=== PATIENT | female | born 1940 | race African-American/Black ===

== ENCOUNTER 2024-10-09 05:24 | Inpatient (IN) | payer MEDICARE, BC ==
[~2024-10-09] VITALS: Ht 30.5 cm; Wt 61.9 kg
[2024-10-09] VITALS (56 sets, daily range): BP systolic 111–149; BP diastolic 51–88; PULSE 74–109; RESP 14–37; TEMP 34.4472–36.78072; O2SAT 90–99
[~2024-10-09 05:24] MED LIST: ATOR10TA69 PO; ESCI10TA PO; LISI10TA26 PO; LYR25 PO; MECL-299 PO; MIRT-90 PO; TRAM50TA3 PO
[2024-10-09] MEDS: SODIUM CHLORIDE 0.9% 1,000 ML IV SCH (06:24)
[2024-10-09] MEDS ORDERED: GENTAMICIN SULF 40MG/ML 2ML VIAL ONE (06:41)
[2024-10-09] MEDS ORDERED: THROMBIN (BOVINE) 5000 UNITS/VIAL TOP ONE (06:41)
[2024-10-09] MEDS ORDERED: LIDOCAINE HCL/EPINEPHRINE 1%-EPI 1:100,000 20ML VIAL ONE (06:41)
[2024-10-09] MEDS ORDERED: SUCCINYLCHOLINE CHLORIDE 200MG/10ML IV ONE (07:05)
[2024-10-09] MEDS ORDERED: PROPOFOL 200MG/20ML VIAL IV ONE (07:05)
[2024-10-09] MEDS ORDERED: ROCURONIUM BROMIDE 10MG/ML VIAL 5ML IV ONE (07:05)
[2024-10-09] MEDS ORDERED: ONDANSETRON HCL 4MG/2ML INJ ONE (07:05)
[2024-10-09] MEDS ORDERED: ETOMIDATE 2MG/ML 10ML VIAL IV ONE (07:05)
[2024-10-09] MEDS ORDERED: DEXAMETHASONE 4MG/ML 1ML VIAL ONE (07:05)
[2024-10-09] MEDS ORDERED: CLINDAMYCIN 900MG PREMIX 50 ML IV ONE (07:06)
[2024-10-09] MEDS ORDERED: MIDAZOLAM HCL 2 MG/2 ML VIAL ONE (07:06)
[2024-10-09] MEDS ORDERED: FENTANYL CITRATE/PF 50MCG/ML 2ML VIAL ONE (07:06)
[2024-10-09] MEDS ORDERED: GLYCOPYRROLATE 0.2 MG/ML 2ML VIAL ONE ×2 (08:16)
[2024-10-09] MEDS ORDERED: FENTANYL CITRATE/PF 50MCG/ML 5ML VIAL ONE (08:16)
[2024-10-09] MEDS ORDERED: HYDRALAZINE 20MG/ML VIAL ONE (09:31)
[2024-10-09] MEDS ORDERED: LABETALOL 5MG/ML 20ML VIAL IV ONE (09:31)
[2024-10-09] MEDS ORDERED: SUGAMMADEX SODIUM 200MG/2ML VIAL IV ONE (09:41)
[2024-10-09] MEDS: MORPHINE SULFATE 4 MG/ML INJ (FOR IV/IM USE) IV PRN (11:00)
[2024-10-09] MEDS: NICARDIPINE 100 MG in SODIUM CHLORIDE 0.9% 60 ML IV PRN (11:50)
[2024-10-09] MEDS: DEXT 5%/LACTATED RINGERS 1,000 ML IV SCH (11:50)
[2024-10-09] MEDS: CLINDAMYCIN 600MG PREMIX 50 ML IV SCH (13:44)
[2024-10-09] MEDS: DEXAMETHASONE 4MG/ML 1ML VIAL IV SCH (13:44)
[2024-10-09] MEDS ORDERED: DONE-51 MT (14:04)
[2024-10-09] MEDS ORDERED: COLC0.6C3 MT (14:04)
[2024-10-09] MEDS: INFLUENZA VACCINE 05/PF 0.5 ML SYRINGE IM ONE (15:15)
[2024-10-09] MEDS: CITALOPRAM HYDROBROMIDE 10MG TABLET PO SCH (15:28)
[2024-10-09] MEDS: THROAT LOZENGES-BENZOCAINE/MENTH/CETYLPYRD CL LOZENGES MM PRN (15:28)
[2024-10-09] MEDS: ATORVASTATIN CALCIUM 10MG TABLET PO SCH (20:56)
[2024-10-09] MEDS: PREGABALIN 25MG CAPSULE PO SCH (20:57)
[2024-10-09] MEDS: MELATONIN 3MG TABLET PO SCH (20:57)
[2024-10-09] MEDS: MIRTAZAPINE 15MG TABLET PO SCH (20:57)
[2024-10-10] VITALS (69 sets, daily range): BP systolic 104–160; BP diastolic 50–102; PULSE 79–128; RESP 12–29; TEMP 36.55848–36.78072; O2SAT 90–100
[2024-10-10 05:11] LABS: HEMATOCRIT. 34.3 % (36.0-48.0); HEMOGLOBIN. 11.3 g/dL (12.0-16.0); MEAN CORPUSCULAR HEMOGLOBIN 29.2 pg (28.0-32.0); MEAN CORPUSCULAR HGB CONC 32.9 g/dL (31.0-37.0); MEAN CORPUSCULAR VOLUME 88.8 fL (81.0-99.0); RED BLOOD CELL COUNT 3.86 mill/uL (4.2-5.4); RED CELL DISTRIBUTION WIDTH 13.4 % (11.6-14.6); WHITE BLOOD COUNT 10.5 x1000/uL (4.5-11.0)
[2024-10-10 05:27] LABS: CALCIUM 9.8 mg/dL (8.7-10.4); CARBON DIOXIDE 25 mEq/L (21-32); CHLORIDE 111 mEq/L (98-107); POTASSIUM 4.5 mEq/L (3.5-5.1); SODIUM 141 mEq/L (136-145)
[2024-10-10 05:32] LABS: CREATININE 0.6 mg/dL (0.6-1.0)
[2024-10-10 05:33] LABS: GLUCOSE 203 mg/dL (70-105); LDL CHOLESTEROL 63 mg/dL (5-100); TRIGLYCERIDE 52 mg/dL (0-150); UREA NITROGEN BLOOD 11 mg/dL (9-23)
[2024-10-10 05:35] LABS: CHOLESTEROL 131 mg/dL (<200); HDL CHOLESTEROL 52 mg/dL (>65)
[2024-10-10 05:39] LABS: THYROID STIMULATING HORMONE 0.39 uIU/mL (0.55-4.78)
[2024-10-10 06:48] LABS: HEPATITIS B SURFACE ANTIGEN NEGATIVE (Negative)
[2024-10-10 07:10] LABS: HEPATITIS C AB NON REACTIVE (Neg) (Negative)
[2024-10-10 07:11] LABS: DIFFERENTIAL COMMENT 1
[2024-10-10] MEDS: LISINOPRIL 20MG TABLET PO SCH (08:33)
[2024-10-10] MEDS ORDERED: LISINOPRIL 10MG TABLET PO SCH (09:00)
[2024-10-10] MEDS ORDERED: PATIENT'S OWN MEDICATION PO SCH (09:00)
[2024-10-10] MEDS: HYDROCODONE/ACETAMINOPHEN 5/325MG TABLET PO PRN (11:01)
[2024-10-10] MEDS: HYDRALAZINE 20MG/ML VIAL IV PRN (11:02)
[2024-10-10 16:16] LABS: MEAN PLATELET VOLUME 9.1 fl (7.4-10.4); PLATELET 140 x1000/uL (130-400)
[2024-10-10 16:17] LABS: PLATELET ESTIMATE NORMAL
[2024-10-11] VITALS (25 sets, daily range): BP systolic 106–177; BP diastolic 47–138; PULSE 80–115; RESP 13–28; TEMP 36.44736–36.9474; O2SAT 93–96
[2024-10-11 06:15] LABS: HEMATOCRIT. 34.7 % (36.0-48.0); HEMOGLOBIN. 11.7 g/dL (12.0-16.0); MEAN CORPUSCULAR HEMOGLOBIN 29.9 pg (28.0-32.0); MEAN CORPUSCULAR HGB CONC 33.8 g/dL (31.0-37.0); MEAN CORPUSCULAR VOLUME 88.4 fL (81.0-99.0); MEAN PLATELET VOLUME 9.3 fl (7.4-10.4); PLATELET 161 x1000/uL (130-400); RED BLOOD CELL COUNT 3.92 mill/uL (4.2-5.4); RED CELL DISTRIBUTION WIDTH 13.2 % (11.6-14.6); WHITE BLOOD COUNT 10.6 x1000/uL (4.5-11.0)
[2024-10-11 06:34] LABS: CHLORIDE 110 mEq/L (98-107); POTASSIUM 4.5 mEq/L (3.5-5.1); SODIUM 144 mEq/L (136-145)
[2024-10-11 06:35] LABS: CARBON DIOXIDE 29 mEq/L (21-32)
[2024-10-11 06:40] LABS: CREATININE 0.5 mg/dL (0.6-1.0); GLUCOSE 123 mg/dL (70-105); UREA NITROGEN BLOOD 13 mg/dL (9-23)
[2024-10-11 08:13] LABS: DIFFERENTIAL COMMENT 1
[2024-10-11] MEDS: POLYETHYLENE GLYCOL 3350 (17GM) 1 DOSE PACK PO PRN (10:36)
[2024-10-11 14:23] LABS: PLATELET ESTIMATE NORMAL
[2024-10-11] MEDS: POLYETHYLENE GLYCOL 3350 (17GM) 1 DOSE PACK PO SCH (16:10)
[2024-10-11 17:52] LABS: CARBON DIOXIDE 28 mEq/L (21-32); CHLORIDE 109 mEq/L (98-107); POTASSIUM 4.3 mEq/L (3.5-5.1); SODIUM 142 mEq/L (136-145)
[2024-10-11 17:53] LABS: CALCIUM 9.8 mg/dL (8.7-10.4)
[2024-10-11 17:58] LABS: CREATININE 0.6 mg/dL (0.6-1.0); GLUCOSE 121 mg/dL (70-105); UREA NITROGEN BLOOD 20 mg/dL (9-23)
[2024-10-12] VITALS (32 sets, daily range): BP systolic 108–152; BP diastolic 62–82; PULSE 72–124; RESP 0–29; TEMP 36.72516–36.89184; O2SAT 94–96
[2024-10-12 06:08] LABS: HEMATOCRIT. 36.7 % (36.0-48.0); HEMOGLOBIN. 12.1 g/dL (12.0-16.0); MEAN CORPUSCULAR HEMOGLOBIN 29.5 pg (28.0-32.0); MEAN CORPUSCULAR VOLUME 89.5 fL (81.0-99.0); MEAN PLATELET VOLUME 9.6 fl (7.4-10.4); MONOCYTES % 8.9 % (2.0-8.0); NEUTROPHILS % 79.1 % (40.0-76.0); PLATELET 148 x1000/uL (130-400); RED CELL DISTRIBUTION WIDTH 13.4 % (11.6-14.6); WHITE BLOOD COUNT 10.6 x1000/uL (4.5-11.0)
[2024-10-12 11:52] LABS: CHLORIDE 109 mEq/L (98-107); POTASSIUM 4.6 mEq/L (3.5-5.1); SODIUM 143 mEq/L (136-145)
[2024-10-12 11:53] LABS: CALCIUM 9.8 mg/dL (8.7-10.4); CARBON DIOXIDE 26 mEq/L (21-32)
[2024-10-12 11:58] LABS: CREATININE 0.6 mg/dL (0.6-1.0); GLUCOSE 90 mg/dL (70-105); UREA NITROGEN BLOOD 22 mg/dL (9-23)
[2024-10-12 12:00] LABS: PHOSPHORUS 2.9 mg/dL (2.5-4.9)
[2024-10-13] VITALS: BP 128/69; PULSE 104; RESP 17; TEMP 36.61404; O2SAT 95
[2024-10-13 04:00] VITALS: BP 128/82; PULSE 92; RESP 15; TEMP 36.72516; O2SAT 96
[2024-10-13 07:33] LABS: CALCIUM 9.6 mg/dL (8.7-10.4); CARBON DIOXIDE 27 mEq/L (21-32); CHLORIDE 106 mEq/L (98-107); POTASSIUM 4.4 mEq/L (3.5-5.1); SODIUM 139 mEq/L (136-145)
[2024-10-13 07:38] LABS: CREATININE 0.5 mg/dL (0.6-1.0); GLUCOSE 91 mg/dL (70-105)
[2024-10-13 07:39] LABS: UREA NITROGEN BLOOD 18 mg/dL (9-23)
[2024-10-13 07:41] LABS: PHOSPHORUS 3.8 mg/dL (2.5-4.9)
[2024-10-13 08:00] VITALS: BP 129/74; PULSE 98; RESP 21; TEMP 37.16964; O2SAT 97
[2024-10-13] MEDS ORDERED: IPRATROPIUM/ALBUTEROL 0.5-3(2.5)MG/3ML NEB HHN PRN (08:00)
[2024-10-13 08:24] LABS: EOSINOPHILS % 0.4 % (0.0-5.0); HEMATOCRIT. 37.3 % (36.0-48.0); LYMPHOCYTES % 18.4 % (20.0-50.0); MEAN CORPUSCULAR HEMOGLOBIN 28.7 pg (28.0-32.0); MEAN CORPUSCULAR HGB CONC 32.3 g/dL (31.0-37.0); MONOCYTES % 10.2 % (2.0-8.0); PLATELET 165 x1000/uL (130-400); RED BLOOD CELL COUNT 4.19 mill/uL (4.2-5.4); RED CELL DISTRIBUTION WIDTH 13.4 % (11.6-14.6); WHITE BLOOD COUNT 8.2 x1000/uL (4.5-11.0)
[2024-10-13 12:00] VITALS: BP 119/76; PULSE 115; RESP 25; TEMP 36.9474; O2SAT 98
[2024-10-13] MEDS ORDERED: NALOXONE HCL 0.4MG/ML VIAL IV PRN (12:30)
[2024-10-13] MEDS: LACTULOSE 20G/30ML UDC PO NR ×2 (12:33→15:30)
[2024-10-13] MEDS: BISACODYL 10MG SUPP PR NR (15:00)
[2024-10-13] MEDS: MORPHINE SULFATE 2 MG/ML INJ (NOT FOR IM USE) IV PRN (15:08)
[2024-10-13 16:00] VITALS: BP 152/88; PULSE 119; RESP 25; TEMP 37.05852; O2SAT 95
[2024-10-13 20:00] VITALS: BP 125/68; PULSE 123; RESP 30; TEMP 38.16972; O2SAT 95
[2024-10-14] VITALS: BP 128/51; PULSE 110; RESP 19; TEMP 36.78072; O2SAT 97
[2024-10-14 04:00] VITALS: BP 131/56; PULSE 113; RESP 21; TEMP 36.61404; O2SAT 96
[2024-10-14 08:00] VITALS: BP 134/72; PULSE 110; RESP 29; TEMP 36.89184; O2SAT 96
[2024-10-14] MEDS: POLYETHYLENE GLYCOL 3350 (17GM) 1 DOSE PACK PO SCH (08:41)
[2024-10-14 09:37] LABS: CHLORIDE 108 mEq/L (98-107); POTASSIUM 4.3 mEq/L (3.5-5.1); SODIUM 139 mEq/L (136-145)
[2024-10-14 09:38] LABS: CALCIUM 9.3 mg/dL (8.7-10.4); CARBON DIOXIDE 27 mEq/L (21-32)
[2024-10-14 09:43] LABS: CREATININE 0.6 mg/dL (0.6-1.0); GLUCOSE 92 mg/dL (70-105)
[2024-10-14 09:44] LABS: UREA NITROGEN BLOOD 13 mg/dL (9-23)
[2024-10-14 09:46] LABS: PHOSPHORUS 2.9 mg/dL (2.5-4.9)
[2024-10-14 10:25] LABS: BASOPHILS % 0.2 % (0.0-2.0); EOSINOPHILS % 0.8 % (0.0-5.0); HEMATOCRIT. 37.9 % (36.0-48.0); HEMOGLOBIN. 12.4 g/dL (12.0-16.0); LYMPHOCYTES % 18.8 % (20.0-50.0); MEAN CORPUSCULAR HEMOGLOBIN 28.9 pg (28.0-32.0); MEAN CORPUSCULAR HGB CONC 32.6 g/dL (31.0-37.0); MEAN CORPUSCULAR VOLUME 88.7 fL (81.0-99.0); MEAN PLATELET VOLUME 8.6 fl (7.4-10.4); MONOCYTES % 9.8 % (2.0-8.0); NEUTROPHILS % 70.4 % (40.0-76.0); PLATELET 178 x1000/uL (130-400); RED BLOOD CELL COUNT 4.27 mill/uL (4.2-5.4); RED CELL DISTRIBUTION WIDTH 13.2 % (11.6-14.6); WHITE BLOOD COUNT 8.1 x1000/uL (4.5-11.0)
[2024-10-14] MEDS: SODIUM CHLORIDE 0.9% 500 ML IV ONE (10:30)
[2024-10-14 12:00] VITALS: BP 128/66; PULSE 108; RESP 32; TEMP 36.9474; O2SAT 97
[2024-10-14 16:00] VITALS: BP 128/70; PULSE 119; RESP 24; TEMP 37.16964; O2SAT 95
[2024-10-14 16:21] LABS: TROPONIN I HIGH SENSITIVITY 95 ng/L (3.0-34)
[2024-10-14 20:00] VITALS: BP 120/64; PULSE 118; RESP 20; TEMP 37.28076; O2SAT 96
[2024-10-15] VITALS: BP 129/68; PULSE 109; RESP 18; TEMP 37.39188; O2SAT 95
[2024-10-15] MEDS: HYDROCODONE/ACETAMINOPHEN 5/325MG TABLET PO PRN (01:13)
[2024-10-15 04:00] VITALS: BP 134/75; PULSE 101; RESP 26; TEMP 37.11408; O2SAT 96
[2024-10-15 08:00] VITALS: BP 124/63; PULSE 111; RESP 12; TEMP 36.89184; O2SAT 97
[2024-10-15 08:25] LABS: BASOPHILS % 0.2 % (0.0-2.0); EOSINOPHILS % 1.1 % (0.0-5.0); HEMATOCRIT. 34.1 % (36.0-48.0); HEMOGLOBIN. 11.2 g/dL (12.0-16.0); LYMPHOCYTES % 17.7 % (20.0-50.0); MEAN CORPUSCULAR HEMOGLOBIN 29.1 pg (28.0-32.0); MEAN CORPUSCULAR HGB CONC 32.9 g/dL (31.0-37.0); MEAN CORPUSCULAR VOLUME 88.5 fL (81.0-99.0); MEAN PLATELET VOLUME 8.4 fl (7.4-10.4); MONOCYTES % 13.1 % (2.0-8.0); NEUTROPHILS % 67.9 % (40.0-76.0); PLATELET 173 x1000/uL (130-400); RED BLOOD CELL COUNT 3.85 mill/uL (4.2-5.4); RED CELL DISTRIBUTION WIDTH 13.2 % (11.6-14.6); WHITE BLOOD COUNT 8.4 x1000/uL (4.5-11.0)
[2024-10-15 12:00] VITALS: BP 126/76; PULSE 89; RESP 19; TEMP 37.16964; O2SAT 95
[2024-10-15 16:00] VITALS: BP 117/71; PULSE 110; RESP 15; TEMP 37.2252; O2SAT 99
[2024-10-15 20:00] VITALS: BP 122/58; PULSE 99; RESP 20; TEMP 36.9474; O2SAT 94
[2024-10-16] VITALS (7 sets, daily range): BP systolic 101–145; BP diastolic 64–98; PULSE 88–107; RESP 19–29; TEMP 36.22512–37.05852; O2SAT 95–96
[2024-10-16] MEDS: PHENOL/SODIUM PHENOLATE 1.4% SRPAY 177ML MM PRN (16:35)
== END 2024-10-16 22:32 | DRG 471 ==
LOC: OR 05:24 → EDSTATUS 07:00 → EDUNIT# 07:00 → MICUSO 10:46 → 3WST 10-12 18:59
PROVIDERS: ADMIT Internal Medicine; ATTEND Internal Medicine
PROC: 0RG2071 Fusion of 2 or more Cervical Vertebral Joints with Autologous Tissue Substitute, Posterior Approach, Posterior Column, Open Approach (ICD-10-PCS; principal; 2024-10-09)
PROC: 00NW0ZZ Release Cervical Spinal Cord, Open Approach (ICD-10-PCS; 2024-10-09)
PROC: 01N10ZZ Release Cervical Nerve, Open Approach (ICD-10-PCS; 2024-10-09)
DX: M48.02 Spinal stenosis, cervical region (principal); G82.50 Quadriplegia, unspecified; G99.2 Myelopathy in diseases classified elsewhere; R65.10 Systemic inflammatory response syndrome (SIRS) of non-infectious origin without acute organ dysfunction; G89.4 Chronic pain syndrome; M54.50 Low back pain, unspecified; E78.5 Hyperlipidemia, unspecified; I10 Essential (primary) hypertension; F41.0 Panic disorder [episodic paroxysmal anxiety]; R53.81 Other malaise; R26.9 Unspecified abnormalities of gait and mobility; R13.10 Dysphagia, unspecified; X58.XXXA Exposure to other specified factors, initial encounter; Y93.89 Activity, other specified; Y92.89 Other specified places as the place of occurrence of the external cause; Y99.8 Other external cause status; Z80.9 Family history of malignant neoplasm, unspecified; Z88.0 Allergy status to penicillin
CPT/HCPCS: 36415; 72040; 72141; 74018; 76000; 80048; 80061; 83036; 83735; 84100; 84145; 84443; 84484; 85025; 86705; 86850; 86900; 87070; 87340; 87430; 88304; 88311; 93005; 93970; 95925; 95926; 95928; 95929; 97110; 97116; 97162; 97166; 97530; 97535; J0330; J0360; J1100; J1580; J2250; J2270; J2405; J2704; J3010; J3490; J7050; J7121; L0172; C1713

== ENCOUNTER 2024-10-16 22:33 | Inpatient (IN) | payer MEDICARE, BC ==
[~2024-10-16] VITALS: Ht 154.9 cm; Wt 58.5 kg
[2024-10-16 22:25] VITALS: BP 127/80; PULSE 79; RESP 18; TEMP 36.14
[~2024-10-16 22:33] MED LIST changes: +COLC0.6C3 MT; +DONE-51 MT
[2024-10-17] MEDS ORDERED: HYDRALAZINE 20MG/ML VIAL IV PRN (02:15)
[2024-10-17] MEDS ORDERED: MORPHINE SULFATE 2 MG/ML INJ (NOT FOR IM USE) IV PRN (02:15)
[2024-10-17] MEDS ORDERED: POLYETHYLENE GLYCOL 3350 (17GM) 1 DOSE PACK PO PRN (02:15)
[2024-10-17] MEDS ORDERED: NALOXONE HCL 0.4MG/ML 1ML VIAL IV PRN (02:15)
[2024-10-17] MEDS ORDERED: PHENOL/SODIUM PHENOLATE 1.4% SRPAY 177ML MM PRN ×2 (02:15→10:00)
[2024-10-17] MEDS ORDERED: IPRATROPIUM/ALBUTEROL 0.5-3(2.5)MG/3ML NEB HHN PRN (02:15)
[2024-10-17] MEDS ORDERED: HYDRALAZINE 10 MG in SODIUM CHLORIDE 0.9% 49.5 ML IV PRN (02:30)
[2024-10-17 06:50] LABS: CHLORIDE 108 mEq/L (98-107); POTASSIUM 4.4 mEq/L (3.5-5.1); SODIUM 138 mEq/L (136-145)
[2024-10-17 06:51] LABS: CALCIUM 9.5 mg/dL (8.7-10.4); CARBON DIOXIDE 24 mEq/L (21-32)
[2024-10-17 06:56] LABS: CREATININE 0.5 mg/dL (0.6-1.0); GLUCOSE 109 mg/dL (70-105); UREA NITROGEN BLOOD 15 mg/dL (9-23)
[2024-10-17 06:58] LABS: ALANINE AMINOTRANSFERASE 26 IU/L (10-49); ALBUMIN 3.3 g/dL (3.2-4.8); ASPARTATE AMINOTRANSFERASE 22 IU/L (<34); BILIRUBIN TOTAL 0.3 mg/dL (0.1-1.0); PROTEIN TOTAL 5.6 g/dL (6.0-8.3)
[2024-10-17 07:06] LABS: PREALBUMIN < 5.0 mg/dl (10.0-40.0)
[2024-10-17 07:09] LABS: BASOPHILS % 0.2 % (0.0-2.0); EOSINOPHILS % 1.3 % (0.0-5.0); HEMATOCRIT. 33.2 % (36.0-48.0); HEMOGLOBIN. 10.7 g/dL (12.0-16.0); LYMPHOCYTES % 19.9 % (20.0-50.0); MEAN CORPUSCULAR HEMOGLOBIN 28.7 pg (28.0-32.0); MEAN CORPUSCULAR HGB CONC 32.4 g/dL (31.0-37.0); MEAN CORPUSCULAR VOLUME 88.7 fL (81.0-99.0); MEAN PLATELET VOLUME 7.7 fl (7.4-10.4); MONOCYTES % 13.4 % (2.0-8.0); NEUTROPHILS % 65.2 % (40.0-76.0); PLATELET 228 x1000/uL (130-400); RED BLOOD CELL COUNT 3.74 mill/uL (4.2-5.4); RED CELL DISTRIBUTION WIDTH 13.1 % (11.6-14.6); WHITE BLOOD COUNT 6.3 x1000/uL (4.5-11.0)
[2024-10-17] MEDS: CITALOPRAM HYDROBROMIDE 10MG TABLET PO SCH (08:47)
[2024-10-17] MEDS: LISINOPRIL 20MG TABLET PO SCH (08:47)
[2024-10-17] MEDS: HYDROCODONE/ACETAMINOPHEN 5/325MG TABLET PO PRN (08:48)
[2024-10-17] MEDS ORDERED: POLYETHYLENE GLYCOL 3350 (17GM) 1 DOSE PACK PO SCH (09:00)
[2024-10-17 09:04] VITALS: BP 114/67; PULSE 86; RESP 18; TEMP 36.28068; O2SAT 96
[2024-10-17 15:30] LABS: CLARITY URINE CLEAR (CLEAR); COLOR URINE YELLOW (YELLOW); GLUCOSE URINE NEGATIVE (NEGATIVE); KETONES URINE NEGATIVE (NEGATIVE); LEUKOCYTE ESTERASE URINE TRACE (NEGATIVE); NITRITE URINE NEGATIVE (NEGATIVE); OCCULT BLOOD URINE NEGATIVE (NEGATIVE); PROTEIN URINE NEGATIVE (NEGATIVE); SPECIFIC GRAVITY URINE 1.009 (1.005-1.030); UROBILINOGEN URINE 0.2 E.U./dL (0.2-1.0)
[2024-10-17 15:47] LABS: BACTERIA URINE TRACE; RBC URINE NONE SEEN /hpf (0-2); SQUAMOUS EPITHELIAL CELL URINE FEW /lpf (RARE/1+)
[2024-10-17] MEDS ORDERED: CLONIDINE 0.1MG TABLET PO PRN (16:20)
[2024-10-17] MEDS: BACLOFEN 10MG TABLET PO SCH (18:09)
[2024-10-17 18:48] LABS: HEPATITIS B SURFACE ANTIGEN NEGATIVE (Negative)
[2024-10-17 19:11] LABS: HEPATITIS C AB NON REACTIVE (Neg) (Negative)
[2024-10-17 20:00] VITALS: BP 104/56; PULSE 78; RESP 17; TEMP 36.50292; O2SAT 95
[2024-10-17] MEDS: MELATONIN 3MG TABLET PO SCH (22:10)
[2024-10-17] MEDS: PREGABALIN 25MG CAPSULE PO SCH (22:11)
[2024-10-17] MEDS: MIRTAZAPINE 15MG TABLET PO SCH (22:11)
[2024-10-17] MEDS: ATORVASTATIN CALCIUM 10MG TABLET PO SCH (22:11)
[2024-10-18 08:00] VITALS: BP 128/72; PULSE 92; RESP 18; TEMP 36.114; O2SAT 95
[2024-10-18 13:15] LABS: BASOPHILS % 0.1 % (0.0-2.0); EOSINOPHILS % 0.5 % (0.0-5.0); HEMATOCRIT. 34.2 % (36.0-48.0); HEMOGLOBIN. 11.2 g/dL (12.0-16.0); LYMPHOCYTES % 12.5 % (20.0-50.0); MEAN CORPUSCULAR HEMOGLOBIN 29.1 pg (28.0-32.0); MEAN CORPUSCULAR HGB CONC 32.7 g/dL (31.0-37.0); MEAN PLATELET VOLUME 7.7 fl (7.4-10.4); MONOCYTES % 9.8 % (2.0-8.0); NEUTROPHILS % 77.1 % (40.0-76.0); PLATELET 247 x1000/uL (130-400); RED BLOOD CELL COUNT 3.84 mill/uL (4.2-5.4); RED CELL DISTRIBUTION WIDTH 12.9 % (11.6-14.6); WHITE BLOOD COUNT 6.8 x1000/uL (4.5-11.0)
[2024-10-18 13:25] LABS: CHLORIDE 105 mEq/L (98-107); POTASSIUM 3.9 mEq/L (3.5-5.1); SODIUM 137 mEq/L (136-145)
[2024-10-18 13:26] LABS: CARBON DIOXIDE 27 mEq/L (21-32)
[2024-10-18 13:29] LABS: FOLIC ACID (FOLATE) SERUM 18.05 ng/mL (>5.38)
[2024-10-18 13:30] LABS: FERRITIN 183 ng/mL (10-291); VITAMIN B12 SERUM 779 pg/mL (211-911)
[2024-10-18 13:31] LABS: CREATININE 0.6 mg/dL (0.6-1.0); GLUCOSE 96 mg/dL (70-105); IRON 27 ug/dL (50-170); UREA NITROGEN BLOOD 14 mg/dL (9-23)
[2024-10-18 13:33] LABS: ALANINE AMINOTRANSFERASE 35 IU/L (10-49); ALBUMIN 3.7 g/dL (3.2-4.8); ASPARTATE AMINOTRANSFERASE 29 IU/L (<34); BILIRUBIN TOTAL 0.4 mg/dL (0.1-1.0); PROTEIN TOTAL 6.4 g/dL (6.0-8.3); TOTAL IRON BINDING CAPACITY 468 ug/dl (250-425)
[2024-10-18 13:36] LABS: THYROID STIMULATING HORMONE 1.12 uIU/mL (0.55-4.78)
[2024-10-18] MEDS: LACTULOSE 20G/30ML UDC PO SCH (16:55)
[2024-10-18 20:00] VITALS: BP 121/59; PULSE 97; RESP 18; TEMP 36.61404; O2SAT 93
[2024-10-19 08:00] VITALS: BP 145/64; PULSE 95; RESP 18; TEMP 36.50292; O2SAT 95
[2024-10-19] MEDS: DICLOFENAC SODIUM 1% GEL 50GM TOP SCH (09:17)
[2024-10-19 20:00] VITALS: BP 114/57; PULSE 88; RESP 18; TEMP 36.22512; O2SAT 94
[2024-10-20 08:00] VITALS: BP 131/64; PULSE 92; RESP 19; TEMP 36.61404; O2SAT 93
[2024-10-20] MEDS: FERROUS SULFATE 325MG TABLET PO SCH (09:28)
[2024-10-20] MEDS: ASCORBIC ACID 500 MG TABLET PO SCH (09:28)
[2024-10-20] MEDS: POLYETHYLENE GLYCOL 3350 (17GM) 1 DOSE PACK PO SCH (12:37)
[2024-10-20] MEDS: LACTULOSE 20G/30ML UDC PO NR (12:37)
[2024-10-20 14:39] LABS: CLARITY URINE CLEAR (CLEAR); COLOR URINE YELLOW (YELLOW); GLUCOSE URINE NEGATIVE (NEGATIVE); KETONES URINE NEGATIVE (NEGATIVE); LEUKOCYTE ESTERASE URINE 2+ (NEGATIVE); NITRITE URINE NEGATIVE (NEGATIVE); OCCULT BLOOD URINE NEGATIVE (NEGATIVE); PH URINE 6.5 (4.5-8.0); PROTEIN URINE NEGATIVE (NEGATIVE); SPECIFIC GRAVITY URINE 1.011 (1.005-1.030); UROBILINOGEN URINE 0.2 E.U./dL (0.2-1.0)
[2024-10-20 15:09] LABS: BACTERIA URINE 2+; SQUAMOUS EPITHELIAL CELL URINE 1+ /lpf (RARE/1+); WBC URINE 15-25 /hpf (0-2); YEAST URINE NONE SEEN
[2024-10-20 20:00] VITALS: BP 123/74; PULSE 102; RESP 19; TEMP 36.05844; O2SAT 97
[2024-10-21 08:00] VITALS: BP 109/65; PULSE 78; RESP 20; TEMP 36.33624; O2SAT 97
[2024-10-21 20:30] VITALS: BP 113/62; PULSE 90; RESP 20; TEMP 36.33624; O2SAT 95
[2024-10-22] MEDS: HYDROCODONE/ACETAMINOPHEN 5/325MG TABLET PO PRN ×2 (03:24→08:34)
[2024-10-22] MEDS ORDERED: NALOXONE HCL 0.4MG/ML VIAL IV PRN (06:00)
[2024-10-22 08:00] VITALS: BP 141/76; PULSE 103; RESP 20; TEMP 36.22512; O2SAT 95
[2024-10-22 20:00] VITALS: BP 111/59; PULSE 101; RESP 18; TEMP 36.28068; O2SAT 95
[2024-10-22] MEDS: NITROFURANTOIN 100MG M/M CAPSULE PO SCH (20:12)
[2024-10-22] MEDS: THROAT LOZENGES-BENZOCAINE/MENTH/CETYLPYRD CL LOZENGES MM PRN (22:37)
[2024-10-23 08:00] VITALS: BP 128/77; PULSE 93; RESP 18; TEMP 36.22512; O2SAT 95
[2024-10-23] MEDS ORDERED: IPRATROPIUM/ALBUTEROL 0.5-3(2.5)MG/3ML NEB HHN PRN (18:00)
[2024-10-23] MEDS: ERGOCALCIFEROL 50000UNITS CAPSULE PO SCH (18:30)
[2024-10-23 20:00] VITALS: BP 133/78; PULSE 80; RESP 17; TEMP 35.89176; O2SAT 100
[2024-10-23] MEDS: POLYETHYLENE GLYCOL 3350 (17GM) 1 DOSE PACK PO SCH (21:48)
[2024-10-24 08:00] VITALS: BP 133/76; PULSE 94; RESP 20; TEMP 36.22512; O2SAT 96
[2024-10-24 20:00] VITALS: BP 137/83; PULSE 97; RESP 18; TEMP 36.22512; O2SAT 89
[2024-10-25 08:00] VITALS: BP 129/66; PULSE 105; RESP 18; TEMP 36.114; TEMP 36.11400; O2SAT 95
[2024-10-25] MEDS ORDERED: CITA10TA16 MT (10:24)
[2024-10-25] MEDS ORDERED: ATOR10TA MT (10:24)
[2024-10-25] MEDS ORDERED: MIRT-90 MT (10:24)
[2024-10-25] MEDS ORDERED: LISI-652 MT (10:24)
[2024-10-25] MEDS ORDERED: LYR25 MT (10:24)
[2024-10-25] MEDS ORDERED: FERR-71 MT (10:24)
[2024-10-25] MEDS ORDERED: SENN8.6T21 MT (10:24)
[2024-10-25] MEDS ORDERED: [UNRECOGNIZED DRUG - CODE] PO (10:24)
[2024-10-25 11:09] VITALS: BP 129/66; PULSE 105; TEMP 97; O2SAT 95
== END 2024-10-25 12:55 | disposition home health service (06) | DRG 551 ==
PROVIDERS: ADMIT Physical Medicine & Rehabilitation Spinal Cord Injury Medicine; ATTEND Internal Medicine
DX: M48.02 Spinal stenosis, cervical region (principal); G82.50 Quadriplegia, unspecified; R65.10 Systemic inflammatory response syndrome (SIRS) of non-infectious origin without acute organ dysfunction; G99.2 Myelopathy in diseases classified elsewhere; N39.0 Urinary tract infection, site not specified; G95.9 Disease of spinal cord, unspecified; M50.10 Cervical disc disorder with radiculopathy, unspecified cervical region; E78.5 Hyperlipidemia, unspecified; G89.4 Chronic pain syndrome; I10 Essential (primary) hypertension; R13.10 Dysphagia, unspecified; H26.9 Unspecified cataract; F41.0 Panic disorder [episodic paroxysmal anxiety]; M54.50 Low back pain, unspecified; R53.81 Other malaise; R26.9 Unspecified abnormalities of gait and mobility; D50.9 Iron deficiency anemia, unspecified; E55.9 Vitamin D deficiency, unspecified; R42 Dizziness and giddiness; R00.0 Tachycardia, unspecified; R21 Rash and other nonspecific skin eruption; R26.89 Other abnormalities of gait and mobility; M54.6 Pain in thoracic spine; R50.82 Postprocedural fever; Z88.0 Allergy status to penicillin; Z91.81 History of falling; Z98.1 Arthrodesis status; Z79.899 Other long term (current) drug therapy; Z80.9 Family history of malignant neoplasm, unspecified
CPT/HCPCS: 36415; 80053; 81003; 82306; 82607; 82728; 82746; 83036; 83540; 83550; 84134; 84439; 84443; 84481; 85025; 86705; 87077; 87186; 87340; 92523; 92610; 97110; 97112; 97116; 97162; 97166; 97530; 97535; A6261; L0172

== ENCOUNTER → 2025-02-23 | Outpatient (CLI) | payer MEDICARE, BC ==
[~2025-02-23] MED LIST changes: +ATOR10TA MT; +CITA10TA16 MT; +FERR-71 MT; +LISI-652 MT; +MIRT-90 MT; +SENN8.6T21 MT; +[UNRECOGNIZED DRUG - CODE] PO
== END | disposition home or self-care (01) ==
LOC: MRI 10:09
PROVIDERS: ATTEND Neurological Surgery
DX: M48.02 Spinal stenosis, cervical region (principal); M50.323 Other cervical disc degeneration at C6-C7 level; Z98.890 Other specified postprocedural states
CPT/HCPCS: 72052